=== PATIENT | female | born 1965 | race Caucasian/White ===

== ENCOUNTER 2018-06-23 12:53 | Inpatient (IN) | payer MEDICARE, OTHER ==
[~2018-06-23 12:53] MED LIST: ROCURONIUM 50 MG INJ
[2018-06-23] MEDS: CEFAZOLIN 2 GM/50 ML (PMX) 50 ML IVPB (13:00)
[2018-06-23] MEDS ORDERED: LACTATED RINGER'S 1,000 ML IV (14:00)
[2018-06-23] MEDS ORDERED: MIDAZOLAM 1 MG/ML 2 ML INJ (16:45)
[2018-06-23] MEDS ORDERED: ROCURONIUM 50 MG INJ (16:45)
[2018-06-23] MEDS ORDERED: PROPOFOL 20 ML (16:45)
[2018-06-23] MEDS ORDERED: LIDOCAINE 2% (SDV) 5 ML INJ (16:45)
[2018-06-23] MEDS ORDERED: BUPIVACAINE 0.5% (SDV) 30 ML INJ (16:48)
[2018-06-23] MEDS ORDERED: CEFAZOLIN 1 GM INJ (17:45)
[2018-06-23] MEDS ORDERED: LABETALOL HCL 20MG INJ (18:59)
[2018-06-23] MEDS ORDERED: VANCOMYCIN 1 GM (PMX) 250 ML (20:46)
[2018-06-23] MEDS ORDERED: FAMOTIDINE 20 MG INJ (20:52)
[2018-06-23] MEDS ORDERED: DEXAMETHASONE 4 MG/ML 1 ML INJ (20:52)
[2018-06-23] MEDS ORDERED: METOCLOPRAMIDE 10 MG INJ (20:52)
[2018-06-23] MEDS ORDERED: ONDANSETRON 4 MG INJ (20:52)
[2018-06-23] MEDS ORDERED: SUGAMMADEX SODIUM 200 MG/2 ML VIAL IV (22:14)
[2018-06-23] MEDS ORDERED: FENTAnyl 50 MCG/ML VIAL (22:16)
[2018-06-23] MEDS ORDERED: HYDROmorphONE 1 MG/5 ML IV SYRINGE IV ×3 (22:30→22:37)
[2018-06-23] MEDS ORDERED: ONDANSETRON 4 MG INJ IV (22:30)
[2018-06-23] MEDS ORDERED: morphine 2 MG INJ IV (22:30)
[2018-06-23] MEDS ORDERED: LABETALOL HCL 20MG INJ IV (22:30)
[2018-06-23] MEDS ORDERED: CEPASTAT LOZENGE MT (22:30)
[2018-06-23] MEDS ORDERED: IBUPROFEN 600 MG TAB PO (22:30)
[2018-06-23] MEDS ORDERED: DIPHENHYDRAMINE 50 MG INJ IV (22:30)
[2018-06-24] MEDS: SOD CHLORIDE 0.9% 1,000 ML IV ×4 (01:00→23:00)
[2018-06-24] MEDS ORDERED: ACETAMINOPHEN 325 MG TAB PO (03:00)
[2018-06-24] MEDS ORDERED: DEXTROSE 50% 50 ML SYRINGE IV ×2 (03:30)
[2018-06-24] MEDS ORDERED: GLUCAGON 1 MG INJ IM (03:30)
[2018-06-24] MEDS ORDERED: GLUCOSE GEL 15 GRAM TUBE PO ×2 (03:30)
[2018-06-24] MEDS ORDERED: GLUCOSE GEL 15 GRAM TUBE BUCCAL (03:30)
[2018-06-24] MEDS: PANTOPRAZOLE 40 MG INJ IV (05:10)
[2018-06-24] MEDS: ONDANSETRON 4 MG INJ IV (05:11)
[2018-06-24 05:35] LABS: ADD MAN DIFF? NO
[2018-06-24 05:38] LABS: HEMOGLOBIN 8.9 g/dl (12.0-16.0); RED BLOOD COUNT 3.57 10^6/ul (4.20-5.40)
[2018-06-24 05:38] LABS: WHITE BLOOD COUNT 7.3 10^3/ul (4.8-10.8)
[2018-06-24 05:39] LABS: ABNORMAL IP MESSAGE 1; BASOPHILS % 0.3 % (0.0-2.0); HEMATOCRIT 29.2 % (37.0-47.0); LYMPHOCYTES # 0.6 10^3/ul (0.8-2.9); LYMPHOCYTES % 7.5 % (15.0-51.0); MEAN CORPUSCULAR HEMOGLOBIN 24.9 pg (29.0-33.0); MEAN CORPUSCULAR HGB CONC 30.5 g/dl (32.0-37.0); MEAN CORPUSCULAR VOLUME 81.8 fl (82.0-101.0); MONOCYTE # 0.1 10^3/ul (0.3-0.9); MONOCYTES % 1.2 % (0.0-11.0); NEUTROPHIL # 6.7 10^3/ul (1.6-7.5); NEUTROPHILS % 90.7 % (39.0-77.0); PLATELET COUNT 306 10^3/UL (140-415); RED CELL DISTRIBUTION WIDTH 15.1 % (11.5-14.5)
[2018-06-24 05:41] LABS: POSITIVE DIFF @See below
[2018-06-24 06:08] LABS: ALANINE AMINOTRANSFERASE 24 IU/L (13-69); ALBUMIN 3.6 g/dl (3.3-4.9); ALKALINE PHOSPHATASE 66 IU/L (42-121); ANION GAP 13 (5-13); ASPARTATE AMINO TRANSFERASE 24 IU/L (15-46); BILIRUBIN,INDIRECT 0.1 mg/dl (0-1.1); BILIRUBIN,TOTAL 0.1 mg/dl (0.2-1.3); BLOOD UREA NITROGEN 14 mg/dl (7-20); CALCIUM 8.2 mg/dl (8.4-10.2); CARBON DIOXIDE 19 mmol/L (21-31); CHLORIDE 111 mmol/L (97-110); CHOL/HDL RATIO 7.9 RATIO; CHOLESTEROL 151 mg/dl (100-200); CREATININE 0.68 mg/dl (0.44-1.00); Estimated GFR > 60 mL/min (>60); GLUCOSE 203 mg/dl (70-220); HDL CHOLESTEROL 19 mg/dl (37-92); LDL CHOLESTEROL,CALCULATED 85 mg/dl; POTASSIUM 4.3 mmol/L (3.5-5.1); SODIUM 143 mmol/L (135-144); TRIGLYCERIDES 236 mg/dl (0-149)
[2018-06-24 06:20] LABS: HEMOGLOBIN A1C 5.9 % (0-5.9)
[2018-06-24] MEDS ORDERED: HEPARIN 5,000 UNIT/0.5 ML VIAL ×2 (08:17→20:53)
[2018-06-24] MEDS: INSULIN ASPART [NOVOLOG] 3 ML PEN SC ×4 (08:25→21:00)
[2018-06-24] MEDS: HEPARIN 5,000 UNIT/1 ML VIAL SC ×2 (08:26→21:21)
[2018-06-24] MEDS: LEVOTHYROXINE 88 MCG TAB PO (11:52)
[2018-06-24] MEDS: PANTOPRAZOLE (EC) 40 MG TAB PO (17:52)
[2018-06-24] MEDS: INSULIN GLARGINE [LANTus] (100 UNITS/ML) SYG SC (20:00)
[2018-06-24] MEDS: VANCOMYCIN 1 GM (PMX) 250 ML IVPB (23:00)
[2018-06-25] MEDS: ACCU-CHEK XX (01:30)
[2018-06-25] MEDS: LEVOTHYROXINE 88 MCG TAB PO (06:20)
[2018-06-25] MEDS: PANTOPRAZOLE (EC) 40 MG TAB PO ×2 (06:20→18:02)
[2018-06-25 06:26] LABS: ADD MAN DIFF? NO
[2018-06-25] MEDS: HYDROCODONE/APAP (10/325) TAB PO ×2 (06:27→14:11)
[2018-06-25 06:37] LABS: BASOPHILS % 0.5 % (0.0-2.0); EOSINOPHILS # 0.1 10^3/ul (0.0-0.5); EOSINOPHILS % 1.5 % (0.0-7.0); HEMATOCRIT 26.2 % (37.0-47.0); LYMPHOCYTES # 1.9 10^3/ul (0.8-2.9); LYMPHOCYTES % 31.7 % (15.0-51.0); MEAN CORPUSCULAR HGB CONC 30.5 g/dl (32.0-37.0); MEAN CORPUSCULAR VOLUME 81.9 fl (82.0-101.0); MEAN PLATELET VOLUME 10.1 fl (7.4-10.4); MONOCYTE # 0.5 10^3/ul (0.3-0.9); MONOCYTES % 8.4 % (0.0-11.0); NEUTROPHIL # 3.5 10^3/ul (1.6-7.5); NEUTROPHILS % 57.6 % (39.0-77.0); PLATELET COUNT 310 10^3/UL (140-415); RED CELL DISTRIBUTION WIDTH 15.3 % (11.5-14.5)
[2018-06-25 06:37] LABS: WHITE BLOOD COUNT 6.1 10^3/ul (4.8-10.8)
[2018-06-25 07:04] LABS: IRON 18 ug/dl (35-150)
[2018-06-25 07:06] LABS: PHOSPHORUS 2.9 mg/dl (2.5-4.9)
[2018-06-25 07:06] LABS: ALANINE AMINOTRANSFERASE 20 IU/L (13-69); ALBUMIN 3.3 g/dl (3.3-4.9); ALBUMIN/GLOBULIN RATIO 1.26; ALKALINE PHOSPHATASE 60 IU/L (42-121); ANION GAP 11 (5-13); ASPARTATE AMINO TRANSFERASE 26 IU/L (15-46); BILIRUBIN,INDIRECT 0.1 mg/dl (0-1.1); BILIRUBIN,TOTAL 0.1 mg/dl (0.2-1.3); BLOOD UREA NITROGEN 10 mg/dl (7-20); CARBON DIOXIDE 20 mmol/L (21-31); CHLORIDE 113 mmol/L (97-110); Estimated GFR > 60 mL/min (>60); GLUCOSE 127 mg/dl (70-220); MAGNESIUM 1.7 mg/dl (1.7-2.5); POTASSIUM 3.9 mmol/L (3.5-5.1); SODIUM 144 mmol/L (135-144); TOTAL PROTEIN 5.9 g/dl (6.1-8.1)
[2018-06-25 07:13] LABS: % IRON SATURATION 6 % SAT (22-52); TOTAL IRON BINDING CAPACITY 313 ug/dl (241-421)
[2018-06-25] MEDS: INSULIN ASPART [NOVOLOG] 3 ML PEN SC ×4 (08:13→20:24)
[2018-06-25] MEDS ORDERED: HEPARIN 5,000 UNIT/0.5 ML VIAL ×2 (08:31→20:08)
[2018-06-25] MEDS: HEPARIN 5,000 UNIT/1 ML VIAL SC ×2 (08:38→20:23)
[2018-06-25] MEDS: SOD CHLORIDE 0.9% 1,000 ML IV ×2 (09:22→20:24)
[2018-06-25] MEDS ORDERED: morphine LIQ (10 MG/5 ML) CUP PO (18:00)
[2018-06-25] MEDS: INSULIN GLARGINE [LANTus] (100 UNITS/ML) SYG SC (20:00)
[2018-06-26] MEDS: SOD CHLORIDE 0.9% 1,000 ML IV ×2 (00:20→06:01)
[2018-06-26] MEDS: ACCU-CHEK XX (01:17)
[2018-06-26] MEDS: HYDROCODONE/APAP (10/325) TAB PO (01:20)
[2018-06-26 05:51] LABS: ADD MAN DIFF? NO
[2018-06-26 05:57] LABS: BASOPHILS % 0.7 % (0.0-2.0); EOSINOPHILS # 0.2 10^3/ul (0.0-0.5); EOSINOPHILS % 2.8 % (0.0-7.0); HEMATOCRIT 23.1 % (37.0-47.0); HEMOGLOBIN 7.1 g/dl (12.0-16.0); LYMPHOCYTES # 1.9 10^3/ul (0.8-2.9); LYMPHOCYTES % 34.4 % (15.0-51.0); MEAN CORPUSCULAR HEMOGLOBIN 25.3 pg (29.0-33.0); MEAN CORPUSCULAR HGB CONC 30.7 g/dl (32.0-37.0); MEAN CORPUSCULAR VOLUME 82.2 fl (82.0-101.0); MEAN PLATELET VOLUME 9.8 fl (7.4-10.4); MONOCYTE # 0.4 10^3/ul (0.3-0.9); MONOCYTES % 7.9 % (0.0-11.0); NEUTROPHIL # 2.9 10^3/ul (1.6-7.5); PLATELET COUNT 253 10^3/UL (140-415); RED BLOOD COUNT 2.81 10^6/ul (4.20-5.40); RED CELL DISTRIBUTION WIDTH 15.1 % (11.5-14.5)
[2018-06-26 05:57] LABS: WHITE BLOOD COUNT 5.4 10^3/ul (4.8-10.8)
[2018-06-26] MEDS: LEVOTHYROXINE 88 MCG TAB PO (05:58)
[2018-06-26] MEDS: PANTOPRAZOLE (EC) 40 MG TAB PO ×2 (05:58→17:08)
[2018-06-26 06:31] LABS: ANION GAP 8 (5-13); BLOOD UREA NITROGEN 7 mg/dl (7-20); CALCIUM 7.8 mg/dl (8.4-10.2); CARBON DIOXIDE 22 mmol/L (21-31); CHLORIDE 112 mmol/L (97-110); CREATININE 0.73 mg/dl (0.44-1.00); Estimated GFR > 60 mL/min (>60); GLUCOSE 107 mg/dl (70-220); MAGNESIUM 1.7 mg/dl (1.7-2.5); PHOSPHORUS 3.2 mg/dl (2.5-4.9); POTASSIUM 3.9 mmol/L (3.5-5.1); SODIUM 142 mmol/L (135-144)
[2018-06-26] MEDS: INSULIN ASPART [NOVOLOG] 3 ML PEN SC ×4 (08:00→20:29)
[2018-06-26] MEDS ORDERED: HEPARIN 5,000 UNIT/0.5 ML VIAL ×2 (08:05→20:11)
[2018-06-26] MEDS: HEPARIN 5,000 UNIT/1 ML VIAL SC ×2 (08:12→20:28)
[2018-06-26 10:21] LABS: HEMATOCRIT 25.4 % (37.0-47.0); HEMOGLOBIN 7.8 g/dl (12.0-16.0)
[2018-06-26] MEDS: PIPER-TAZO 3.375 GM IV (PMX) 100 ML IVPB ×2 (12:55→17:09)
[2018-06-26] MEDS: CYCLOBENZAPRINE 10 MG TAB PO ×2 (12:55→20:27)
[2018-06-26] MEDS: INSULIN GLARGINE [LANTus] (100 UNITS/ML) SYG SC (20:00)
[2018-06-27] MEDS: ACCU-CHEK XX (02:00)
[2018-06-27] MEDS: PANTOPRAZOLE (EC) 40 MG TAB PO (05:43)
[2018-06-27] MEDS: LEVOTHYROXINE 88 MCG TAB PO (05:43)
[2018-06-27] MEDS: PIPER-TAZO 3.375 GM IV (PMX) 100 ML IVPB ×3 (05:43→13:14)
[2018-06-27 07:16] LABS: ADD MAN DIFF? NO
[2018-06-27 07:23] LABS: BASOPHILS % 0.5 % (0.0-2.0); EOSINOPHILS # 0.3 10^3/ul (0.0-0.5); EOSINOPHILS % 4.4 % (0.0-7.0); HEMATOCRIT 24.7 % (37.0-47.0); HEMOGLOBIN 7.5 g/dl (12.0-16.0); LYMPHOCYTES # 1.7 10^3/ul (0.8-2.9); LYMPHOCYTES % 29.3 % (15.0-51.0); MEAN CORPUSCULAR HEMOGLOBIN 24.8 pg (29.0-33.0); MEAN CORPUSCULAR HGB CONC 30.4 g/dl (32.0-37.0); MEAN CORPUSCULAR VOLUME 81.5 fl (82.0-101.0); MEAN PLATELET VOLUME 10.3 fl (7.4-10.4); MONOCYTE # 0.4 10^3/ul (0.3-0.9); MONOCYTES % 5.9 % (0.0-11.0); NEUTROPHIL # 3.5 10^3/ul (1.6-7.5); NEUTROPHILS % 59.7 % (39.0-77.0); PLATELET COUNT 318 10^3/UL (140-415); RED BLOOD COUNT 3.03 10^6/ul (4.20-5.40); RED CELL DISTRIBUTION WIDTH 15.1 % (11.5-14.5)
[2018-06-27 07:23] LABS: WHITE BLOOD COUNT 5.9 10^3/ul (4.8-10.8)
[2018-06-27 07:52] LABS: ANION GAP 9 (5-13); BLOOD UREA NITROGEN 8 mg/dl (7-20); CARBON DIOXIDE 22 mmol/L (21-31); CHLORIDE 110 mmol/L (97-110); CREATININE 0.73 mg/dl (0.44-1.00); Estimated GFR > 60 mL/min (>60); GLUCOSE 106 mg/dl (70-220); MAGNESIUM 1.7 mg/dl (1.7-2.5); PHOSPHORUS 3.4 mg/dl (2.5-4.9); SODIUM 141 mmol/L (135-144)
[2018-06-27] MEDS ORDERED: HEPARIN 5,000 UNIT/0.5 ML VIAL (07:53)
[2018-06-27] MEDS: CYCLOBENZAPRINE 10 MG TAB PO (07:59)
[2018-06-27] MEDS: INSULIN ASPART [NOVOLOG] 3 ML PEN SC ×2 (08:00→12:00)
[2018-06-27] MEDS: HEPARIN 5,000 UNIT/1 ML VIAL SC (08:01)
[2018-06-27] MEDS: SOD CHLORIDE 0.9% 250 ML IV* (13:14)
[2018-06-27 13:28] LABS: IMMEDIATE SPIN CROSSMATCH 1 1
== END 2018-06-27 17:40 | disposition home health service (06) | DRG 494 ==
LOC: 2NE 06-24 00:49 → REC 12:53
PROVIDERS: Podiatrist Foot & Ankle Surgery
PROC: 0SGG07Z Fusion of Left Ankle Joint with Autologous Tissue Substitute, Open Approach (ICD-10-PCS; principal; 2018-06-23 15:00)
PROC: 0SGG0KZ Fusion of Left Ankle Joint with Nonautologous Tissue Substitute, Open Approach (ICD-10-PCS; 2018-06-23 15:00)
PROC: 0SGG04Z Fusion of Left Ankle Joint with Internal Fixation Device, Open Approach (ICD-10-PCS; 2018-06-23 15:00)
PROC: 0SGG05Z Fusion of Left Ankle Joint with External Fixation Device, Open Approach (ICD-10-PCS; 2018-06-23 15:00)
PROC: 0KXT0ZZ Transfer Left Lower Leg Muscle, Open Approach (ICD-10-PCS; 2018-06-23 15:00)
PROC: 0KU Muscles, Supplement (ICD-10-PCS; 2018-06-23 15:00)
PROC: 30233N1 Transfusion of Nonautologous Red Blood Cells into Peripheral Vein, Percutaneous Approach (ICD-10-PCS; 2018-06-23 16:56)
DX: M96.0 Pseudarthrosis after fusion or arthrodesis (principal); E11.610 Type 2 diabetes mellitus with diabetic neuropathic arthropathy; M25.372 Other instability, left ankle; M85.80 Other specified disorders of bone density and structure, unspecified site; E11.42 Type 2 diabetes mellitus with diabetic polyneuropathy; E03.9 Hypothyroidism, unspecified; E66.9 Obesity, unspecified; D64.9 Anemia, unspecified; Z87.891 Personal history of nicotine dependence; Z68.35 Body mass index [BMI] 35.0-35.9, adult
CPT/HCPCS: 36430; 73600-52; 73610; 80048; 80053; 80061; 82728; 82962; 83036; 83540; 83735; 84100; 84703; 85014; 85018; 85025; 86850; 86900; 86901; 86920; 87040; 87086; 88304; 88311; 90686; 97116; 97161; 97530